=== PATIENT | male | born 1960 | race Asian ===

== ENCOUNTER 2021-01-15 07:10 | Day surgery (SDC) | payer MEDICAID, SELFPAY ==
[~2021-01-15] VITALS: Ht 175.3 cm; Wt 84.4 kg
[2021-01-15] MEDS ORDERED: DEXAMETHASONE SOD PHOSPHATE 4 MG/ML VIAL IVP ONE (09:26)
[2021-01-15] MEDS ORDERED: LEVOFLOXACIN IN DEXTROSE 5 % 500 MG/100 ML PIGGYBACK IV ONE (09:26)
[2021-01-15] MEDS ORDERED: PROPOFOL 200MG/ 20ML VIAL (DIPRIVAN) IV ONE (09:26)
[2021-01-15] MEDS ORDERED: LR 1,000 ML IV.SOLN IV ONE (09:26)
[2021-01-15] MEDS ORDERED: LIDOCAINE 2%, 20 ML MDV INJ ONE (09:26)
[2021-01-15] MEDS ORDERED: ROCURONIUM BROMIDE 10 MG/ML (ZEMURON) IV ONE (09:26)
[2021-01-15] MEDS ORDERED: fentaNYL CITRATE 250 MCG/5 ML AMP IV ONE (09:26)
[2021-01-15] MEDS ORDERED: MIDAZOLAM HCL 5 MG/5 ML VIAL IVP ONE (09:26)
[2021-01-15] MEDS ORDERED: DESFLURANE 15 MIN GAS INH ONE (09:26)
[2021-01-15] MEDS ORDERED: LIDOCAINE/EPI 1% 1:100000 20 ML VIAL INJ ONE (09:26)
[2021-01-15] MEDS ORDERED: ACETAMINOPHEN I.V. 1000 MG 100 ML IV ONE (10:11)
[2021-01-15] MEDS ORDERED: METOCLOPRAMIDE HCL 10 MG/2 ML VIAL IVP PRN (10:15)
[2021-01-15] MEDS ORDERED: MIDAZOLAM HCL 2 MG/2 ML VIAL (VERSED) IVP PRN (10:15)
[2021-01-15] MEDS ORDERED: LABETALOL 100 MG/ 20ML VIAL IVP PRN (10:15)
[2021-01-15] MEDS ORDERED: MEPERIDINE HCL/PF 25 MG/ML DISP.SYRIN IVP PRN (10:15)
[2021-01-15] MEDS ORDERED: hydrALAZINE HCL 20 MG/ML VIAL IVP PRN (10:15)
[2021-01-15] MEDS ORDERED: HYDROmorphone 1 MG/ML INJ. CARTRIDGE IVP PRN ×2 (10:15)
[2021-01-15] MEDS ORDERED: LR 1,000 ML IV SCH (10:15)
[2021-01-15 16:17] VITALS: BP_SYST 136
== END 2021-01-15 16:10 | disposition home or self-care (01) ==
LOC: SDS 07:10 → SMU 07:11 → SDS 16:10
PROVIDERS: ATTEND Otolaryngology
DX: J34.89 Other specified disorders of nose and nasal sinuses (principal); D38.5 Neoplasm of uncertain behavior of other respiratory organs; J30.1 Allergic rhinitis due to pollen; I10 Essential (primary) hypertension; Z20.822 Contact with and (suspected) exposure to COVID-19; Z79.899 Other long term (current) drug therapy
CPT/HCPCS: 30140; 30520; 31256; 31257; 31296; 87070; 87075; 87101; 87116; 88305; 88311; C1726; J0131; U0003; J1100; J1956; J2001; J2250; J2704; J3010; J7120